=== PATIENT | male | born 1985 | race Caucasian/White ===

== ENCOUNTER 2017-02-03 13:28 | Emergency (ER) | payer OTHER ==
[2017-02-03 13:34] VITALS: BP 120/69; BMI 18.7
[2017-02-03] MEDS ORDERED: ADACEL TDaP IM ONE ×2 (13:39→13:40)
[2017-02-03] MEDS ORDERED: NS IRRIGATION 1000 ML 1,000 ML ONE (14:12)
[2017-02-03] MEDS ORDERED: BACITRACIN ZINC ONE (14:56)
--- NOTE | 2017-02-03 14:59 | DR.GENAD ---
HPI - PCP Primary Care Physician: NFD - Complaint/Symptoms Chief Complaint:: WAS TRIMMING A FIELD AND CUT LEFT PINKY FINGER WITH THE KNIFE - Source History Provided: Patient - Mode of Arrival Mode of Arrival: Ambulatory - Timing Onset of Chief Complaint: 02/03/17 PMH - PMH Past Medical History: No Past Surgical History: Yes Surgical History: Appendectomy, Cholecystectomy - Family History History of Family Medical Conditions: Yes Family Medical History Comment: HEART - Social History Does patient currently use any type of tobacco product: Yes Have you used tobacco products in the last 12 months: Yes Type of Tobacco Use: Cigarettes Does any household member use tobacco: No Alcohol Use: None Do you use any recreational Drugs:: No Lives With: Family Lives Where: Home - infectious screening In the last 2 months have you had wt loss of >10#?: NO Have you had fever, night sweats or hemotysis?: No Have you traveled outside the country in the last 6 months?: No Isolation: Standard ROS - Review of Systems Constitutional: No Symptoms Reported Eyes: No Symptoms Reported ENTM: No Symptoms Reported Respiratoy: No Symptoms Reported Cardiovascular: No Symptoms Reported Gastrointestinal/Abdominal: No Symptoms Reported Genitourinary: No Symptoms Reported Neurological: No Symptoms Reported Musculoskeletal: Hand (5digit left hand, 5cm jaggered laceration) Integumentary: No Symptoms Reported Hematologic/Lymphatic: No Symptoms Reported Endocrine: No Symptoms Reported Psychiatric: No Symptoms Reported All Other Systems: Reviewed and Negative PE - Vital Signs Vitals: Pulse Rate 105 Respiratory Rate 20 Blood Pressure 120/69 O2 Sat by Pulse Oximetry 100 - General Limitations: No Limitations General Appearance: Alert, In No Apparent Distress - Head Head Exam: Normal Inspection, Atraumatic - Eyes Eye exam: Normal Appearance, PERRL, EOMI - ENT ENT Exam: Normal Exam External Ear Exam: Normal External Inspection TM/Canal Exam: Bilateral Normal Nose Exam: Normal Nose Exam Mouth Exam: Normal Inspection Throat Exam: Normal Inspection - Neck Neck Exam: Normal Inspection - Chest Chest Inspection: Normal Inspection - Respiratory Respiratory Exam: Normal Lung Sounds Bilat Respiratory Exam: Bilateral Clear to Auscultation - Cardiovascular Cardiovascular Exam: Regular Rate - Abdominal Exam Abdominal Exam: Normal Inspection Abdominal Tenderness: negative: RUQ, RLQ, LUQ, LLQ, Epigastrium, Suprapubic, Diffuse, Mild, Moderate, Severe, Other - Extremities Extremities Exam: Other (5thd digit left with 5cm jaggered laderation) - Back Back Exam: Normal Inspection - Neurologic Neurological Exam: Alert, Oriented X3, CN II-XII Intact - Psychiatric Psychiatric Exam: Normal Affect, Normal Mood - Skin Skin Exam: Warm, Dry, Normal Color Course - Reevaluation 1st: Improved Procedures - Laceration/Wound Repair Left Wound's Depth, Shape: Superficial, Irregular Wound Explored: clean Betadine Prep?: Yes Anesthesia: 1% Lidocaine Volume Anesthetic (ccs): 5 Wound Repaired With: sutures Suture Size/Type: 4:0, Ethilion Number of Sutures: 12 Layer Closure?: No - Diagnosis Discharge Problem: Laceration of finger of left hand Qualifiers: Encounter type: initial encounter Qualified Code(s): S61.219A - Laceration without foreign body of unspecified finger without damage to nail, initial encounter - Discharge Plan Condition: Stable - Follow ups/Referrals Follow ups/Referrals: NFD,None [Primary Care Provider] - 3 days - Instructions
--- NOTE | 2017-02-03 15:35 | RAD ---
HISTORY: Cut left 5th finger with knife Study: Three views left hand Comparison: None Findings: No acute cortical disruption or dislocation is identified. The soft tissues appear unremarkable. T he carpal bones appear aligned without evidence for fracture. IMPRESSION: 1. Negative exam. Reported By:
== END 2017-02-03 15:48 | disposition home or self-care (01) ==
LOC: ER 13:33
PROC: 0XQW0ZZ Repair Left Little Finger, Open Approach (ICD-10-PCS; principal; 2017-02-03)
DX: S61.219A Laceration without foreign body of unspecified finger without damage to nail, initial encounter (principal); W26.0XXA Contact with knife, initial encounter; Y92.9 Unspecified place or not applicable
CPT/HCPCS: 73130; 90471; 99282